=== PATIENT | male | born 1995 | race African-American/Black ===

== ENCOUNTER 2016-08-08 13:00 | Emergency (ER) | payer OTHER ==
[~2016-08-08] VITALS: Ht 172.7 cm; Wt 70.3 kg
[2016-08-08] MEDS ORDERED: IV NORMAL SALINE 1000 ML BAG IV ONE ×3 (13:45→15:45)
[2016-08-08] MEDS ORDERED: PANTOPRAZOLE SODIUM 40 MG VIAL IV ONE (13:45)
[2016-08-08] MEDS ORDERED: ONDANSETRON 4 MG/2 ML VIAL IV ONE (13:45)
--- NOTE | 2016-08-08 13:45 | NUR ---
CAME FROM HOME. PT IS AMBULATORY WITH STEADY GAIT. SPEAKING IN BROKEN SENTECES. SLIGHTLY ANXIOUS, RESTLESS. C/O CP STARTED YESTERDAY 08/07/2016 AT AROUND 1430. PT STATES THAT HE HAS BEEN DRINKING ALCOHOL, TOOK COCAINE UNKNOWN AMOUNT YESTERDAY. DENIES ANY PAST MEDICAL HX. WCTM PT AT THIS TIME. MADE AWARE. AT BEDSIDE PERFORMING MSE
[2016-08-08] MEDS ORDERED: ONDANSETRON 4 MG/2 ML VIAL ONE ×2 (13:59→14:07)
[2016-08-08] MEDS ORDERED: PANTOPRAZOLE SODIUM 40 MG VIAL ONE (13:59)
[2016-08-08] MEDS ORDERED: LORAZEPAM 2 MG/1 ML VIAL IV ONE (14:00)
--- NOTE | 2016-08-08 14:05 | NUR ---
PT WAS SPEAKING TO "RAYMOND" WHO IS [SECOND MOTHER] TO PT. PT VERBALIZED "PLEASE TELL HER EVERYTHING." PT PLACED PHONE CALL ON SPEAKER AND GAVE VERBAL CONSENT TO DISCLOSE INFORMATION. PER MRS. ANDRADE [ROSY CRAWFORD'S MOM] PT WAS PICKED UP FROM [facility] YESTERDAY , PT WAS TACHY, HAD AN IRREGULAR HEART BEAT, WAS SEEN AT [facility], DIAPHORETIC. PER MRS. ANDRADE, SHE ALSO GAVE PT ATIVAN 0.5MG PO AND ANOTHER ONE AFTER 20MINS WITH A TOTAL OF 1MG ATIVAN.
[2016-08-08] MEDS ORDERED: LORAZEPAM 2 MG/1 ML VIAL ONE (14:07)
[2016-08-08 14:08] LABS: CALCIUM 9.9 mg/dL (8.5-10.1); CREATININE 1.2 mg/dL (0.6-1.3); POTASSIUM 4.1 mmol/L (3.5-5.1)
[2016-08-08 14:13] LABS: ALBUMIN 4.9 g/dL (3.4-5.0); BASOPHILS # (AUTO) 0.1 K/uL (0.0-0.2); BASOPHILS % (AUTO) 1.1 % (0.0-2.0); BILIRUBIN,DIRECT 0.4 mg/dL (0.0-0.2); BILIRUBIN,TOTAL 2.1 mg/dL (0.2-1.0); EOSINOPHILS % (AUTO) 0.6 % (0.0-7.0); HEMATOCRIT 51.2 % (40.0-50.0); HEMOGLOBIN 17.7 g/dL (14.0-18.0); LYMPHOCYTES # (AUTO) 1.5 K/uL (0.8-4.8); LYMPHOCYTES % (AUTO) 22.3 % (20.5-51.5); MEAN CORPUSCULAR HEMOGLOBIN 31.7 uug (27.0-31.0); MEAN CORPUSCULAR HGB CONC 35 g/dL (32.0-37.0); MEAN CORPUSCULAR VOLUME 91.7 fL (82.0-92.0); MONOCYTES # (AUTO) 0.6 K/uL (0.1-1.30); MONOCYTES % (AUTO) 9.7 % (0.0-11.0); NEUTROPHILS # (AUTO) 4.4 K/uL (1.8-8.9); NEUTROPHILS % (AUTO) 66.3 % (38.5-71.5); PLATELET COUNT (AUTO) 256 K/uL (150-450); RED BLOOD CELL COUNT(AUTO) 5.58 MIL/uL (4.70-6.10); RED CELL DISTRIBUTION WIDTH 12.2 % (11.5-14.5); TOTAL PROTEIN, SERUM 9.3 g/dL (6.4-8.2); WHITE BLOOD COUNT (AUTO) 6.6 K/uL (4.0-11.2)
--- NOTE | 2016-08-08 16:35 | NUR ---
PT IS AT BEDSIDE, ACCOMPANIED BY AUNT. VSS. SLEEP BUT AROUSABLE. NAD NOTED.
--- NOTE | 2016-08-08 16:54 | NUR ---
UA COLLECTED AND SENT
[2016-08-08 17:49] VITALS: BP 119/80
--- NOTE | 2016-08-08 17:50 | NUR ---
Patient discharged to home in stable conditon. Written and verbal after care instructions given, along with RX Zofran. Patient verbalizes understanding of instructions. No further questions or concerns noted prior on leaving the ED.
== END 2016-08-08 17:51 | disposition home or self-care (01) ==
LOC: ER 13:02
DX: E86.0 Dehydration (principal); T51.91XA Toxic effect of unspecified alcohol, accidental (unintentional), initial encounter; F14.90 Cocaine use, unspecified, uncomplicated; Z88.2 Allergy status to sulfonamides; Y92.89 Other specified places as the place of occurrence of the external cause
CPT/HCPCS: 36415; 71010; 80048; 80076; 83690; 83735; 84484 ×2; 85025; 93005; 96361; 96374; 96375; 99285; A4663; C9113; J2060; J2405 ×2; J7030 ×3; 70030-TC